=== PATIENT | male | born 1940 | race Caucasian/White ===

== ENCOUNTER 2016-12-08 11:29 | Day surgery (SDC) | payer MEDICARE, OTHER ==
--- NOTE | ~2016-12-08 | EGD ---
EGD REPORT [facility] [address] [address] NAME: DELROY VILLAGOMEZ : [birth year] STATUS : REG [facility]#: [id number] AGE: 76 ADM/REG DATE : 12/08/16 MR#: [id number] REPORT SERV DATE: 12/08/16 DICTATED BY: JERRY YOUSIF DATE: 12/08/16 REPORT STATUS : Draft TRANSCRIBED BY: [facility] DATE: 12/08/16 Endoscopy Center Patient Name: Delroy Villagomez Date of : 1940 Attending MD: JERRY YOUSIF MD Procedure Date No Time: 12/08/2016 Procedure: Colonoscopy Indications: High risk colon cancer surveillance: Personal history of colonic polyps, (Last colon 2014) Referring MD: CASIE PÉREZ Medicines: See the Anesthesia note for documentation of the administered medications Complications: No immediate complications. Procedure: Pre-Anesthesia Assessment: - ASA Grade Assessment: II - A patient with mild systemic disease. After I obtained informed consent, the scope was passed under direct vision. Throughout the procedure, the patient's blood pressure, pulse, and oxygen saturations were monitored continuously. The PCF [id number] was introduced through the anus and advanced to the cecum, identified by appendiceal orifice and ileocecal valve. The colonoscopy was performed without difficulty. The patient tolerated the procedure well. The quality of the bowel preparation was adequate. Findings: The perianal and digital rectal examinations were normal. Diverticula were found in the sigmoid colon. Internal hemorrhoids were found during retroflexion and were medium-sized. A sessile polyp was found in the ascending colon. The polyp was small in size. The polyp was removed with a cold biopsy forceps. Resection and retrieval were complete. Impression: - Diverticulosis in the sigmoid colon. - Internal hemorrhoids. - One small polyp in the ascending colon. Resected and retrieved. Recommendation: - Patient has a contact number available for emergencies. The signs and symptoms of potential delayed complications were discussed with the patient. Return to normal activities tomorrow. Written discharge instructions were provided to the patient. EGD REPORT [address] [address] NAME: DELROY VILLAGOMEZ : [birth year] STATUS : REG [facility]#: [id number] AGE: 76 ADM/REG DATE : 12/08/16 MR#: [id number] REPORT SERV DATE: 12/08/16 DICTATED BY: JERRY YOUSIF DATE: 12/08/16 REPORT STATUS : Draft TRANSCRIBED BY: [employer] DATE: 12/08/16 - Regular diet. - Continue present medications. - Repeat colonoscopy in 5 years for surveillance. - FOR YOUR BIOPSY RESULTS: Please go to [email or web address] and register to receive your results via the portal. Your biopsy results will be posted there in about 7 to 10 days. IF you do not see result in 10 days, call office. Procedure Code(s): --- Professional --- 11112, Colonoscopy, flexible, proximal to splenic flexure; with biopsy, single or multiple Diagnosis Code(s): --- Professional --- K64.8, Other hemorrhoids K57.30, Diverticulosis of large intestine without perforation or abscess without bleeding D12.2, Benign neoplasm of ascending colon Z86.010, Personal history of colonic polyps CPT copyright 2013 [employer]. All rights reserved. The codes documented in this report are preliminary and upon baseball inspector review may be revised to meet current compliance requirements. Jerry Yousif MD JERRY YOUSIF MD 12/08/2016 2:19 PM This report has been signed electronically. Number of Addenda: 0 Note Initiated On: 12/08/2016 1:52 PM Scope Withdrawal Time 0 hours 6 minutes 56 seconds [id number] [place] [id number]
[~2016-12-08 11:29] MED LIST: ENDOCET1 TA3 PO; FISH OIL1200 MG PO; FLOMAX4 PO; LEVOTHYROXIN137 MCG PO; LIPITOR20 PO; NEUR300 PO; PRESERVISION A1 EACH PO; PROTONIX PO
== END 2016-12-08 23:59 | disposition home or self-care (01) ==
LOC: DMU 11:29
PROVIDERS: Internal Medicine Gastroenterology
PROC: 0DBK8ZZ Excision of Ascending Colon, Via Natural or Artificial Opening Endoscopic (ICD-10-PCS; principal; 2016-12-08 13:30)
DX: Z12.11 Encounter for screening for malignant neoplasm of colon (principal); D12.2 Benign neoplasm of ascending colon; K64.8 Other hemorrhoids; K57.30 Diverticulosis of large intestine without perforation or abscess without bleeding; E03.9 Hypothyroidism, unspecified; N40.0 Benign prostatic hyperplasia without lower urinary tract symptoms; K21.9 Gastro-esophageal reflux disease without esophagitis; H35.30 Unspecified macular degeneration; H91.90 Unspecified hearing loss, unspecified ear; Z97.4 Presence of external hearing-aid; M54.16 Radiculopathy, lumbar region; Z87.891 Personal history of nicotine dependence; Z86.010 Personal history of colon polyps; Z85.72 Personal history of non-Hodgkin lymphomas; Z92.21 Personal history of antineoplastic chemotherapy; Z79.899 Other long term (current) drug therapy; Z79.891 Long term (current) use of opiate analgesic
CPT/HCPCS: 88305